=== PATIENT | female | born 1955 | race Caucasian/White ===

== ENCOUNTER 2020-03-22 10:40 | Emergency (ER) | payer OTHER, SELFPAY ==
--- NOTE | ~2020-03-22 | XR_ITS ---
EXAMINATION: XR elbow LT min 3V DATE: 03/22/2020 11:43 INDICATION: Left elbow pain, initial encounter TECHNIQUE: Anteroposterior, two oblique and lateral views of the left elbow were obtained. COMPARISON: None. FINDINGS: There is an acute, traumatic, closed, nondisplaced transverse neck fracture of the proximal radius. No definite joint effusion is identified. Soft tissues are unremarkable. IMPRESSION: 1. Nondisplaced neck fracture of the proximal radius. Reviewed, dictated and finalized at location A.
--- NOTE | ~2020-03-22 | XR_ITS ---
EXAMINATION: XR wrist LT min 3V DATE: 03/22/2020 11:12 INDICATION: Left wrist pain TECHNIQUE: Posteroanterior, ulnar deviation, oblique, and lateral views of the left wrist were obtain ed. COMPARISON: None available FINDINGS: There is no fracture, dislocation, or subluxation. The bones, soft tissues, and joint space s are normal. IMPRESSION: 1. No acute osseous abnormality. Reviewed, dictated and finalized at location A.
--- NOTE | ~2020-03-22 | XR_ITS ---
EXAMINATION: XR forearm LT 2V INDICATION: Left forearm pain TECHNIQUE: Two views of the left forearm are obtained. COMPARISON: None available FINDINGS: There appears to be a subtle nondisplaced transverse fracture of the radial neck. Bone alig nment is normal. No additional acute osseous abnormality is suspected. The soft tissues are unremarka ble. IMPRESSION: 1. Possible nondisplaced fracture of the radial neck. Consider dedicated elbow radiographs. Reviewed, dictated and finalized at location A.
[2020-03-22 10:57] VITALS: BP 130/92; PULSE 103; RESP 16; TEMP 36.6; O2SAT 98
--- NOTE | 2020-03-22 10:58 | ED.UPPEXIN ---
HPI - Extremity Injury (Upper) General Chief Complaint: Extremity Injury, Upper Stated Complaint: left elbow sprain Time Seen by Provider: 03/22/20 10:58 Source: patient Mode of arrival: ambulatory Limitations: no limitations History of Present Illness HPI narrative: Deisy Lilly is a 64 yo female with a PMH of HTN who comes to express care after fall while cleaning. Had sandals on and caught toe under rugs, fell to R with outstretched R hand and then hit R elbow. States at time of fall brought tears to her eyes and became diaphoretic; pain from elbow to midshaft forearm Related Data Home Medications Medication Instructions Recorded Confirmed hydrochlorothiazide 03/22/20 metoprolol succinate PO 03/22/20 omeprazole 03/22/20 quinapril mg 03/22/20 Allergies Allergy/AdvReac Type Severity Reaction Status Date / Time ibuprofen Allergy Unknown Verified 03/14/12 07:12 ADVIL Allergy Unknown Hives / Uncoded 02/21/19 13:50 Red Face NKFA Allergy Unknown Uncoded 04/01/03 13:09 NONSTEROIDAL Allergy Unknown Uncoded 02/21/19 13:50 Review of Systems Review of Systems: Narrative: CONSTITUTIONAL: Denies fever, chills, sweats. EYES: Denies visual changes, redness, discharge. ENT: Denies rhinorrhea, congestion, sore throat, otalgia. CARDIOVASCULAR: Denies chest pain, palpitations, edema. RESPIRATORY: Denies dyspnea, wheezing, cough GASTROINTESTINAL: Denies abdominal pain, nausea, vomiting, diarrhea. GENITOURINARY: Denies dysuria, hematuria, abnormal discharge SKIN: Denies rash or itching. NEUROLOGIC: Denies numbness, or focal weakness. PSYCHIATRIC: Denies anxiety or depression. Fall with pain left forearm PMFSH Family History Family History Other Hypertension Social History Social History (Updated 03/22/20 @ 11:11 by Katelynn Ching CNP) Smoking status: Never smoker Alcohol intake: current Alcohol use details: Drinks rarely Comments At time of signature, I agree with nursing past medical, surgical, social and family history. There is no relevant family history pertinent to the presenting complaint. Blood pressure elevated due to pain Exam Narrative: Exam Narrative: GENERAL: This is a well-nourished, well-developed patient, in mild distress. HEAD: normocephalic, atraumatic. EYES:Sclera clear/white. Vision is grossly intact. EARS: External ears normal, . Hearing grossly intact. NOSE: External nose normal without nasal discharge, nares without redness, no rhinorrhea. THROAT: Mucous membranes moist, NECK: Neck supple, CARDIOVASCULAR: Regular rate and rhythm without murmurs, gallops, or rubs. RESPIRATORY: Clear to auscultation. Breath sounds equal bilaterally. No wheezes, rales, or rhonchi. GASTROINTESTINAL: Abdomen soft, SKIN: warm, intact with no suspicious lesions or rash, good texture and turgor. NEURO: awake, alert, and oriented to person, place and time. There were no obvious focal neurologic abnormalities. Steady gait EXTREMITIES: N on left hand able to do finger opposition flex and extend wrist with discomfort able to pronate supinate forearm also with discomfort describes pain as extending from distal olecranon to midshaft forearm; not tender along that area to touch, chills weakness when trying to lift arm up with pressure, handgrip 4 out of 5 BACK: Nontender without deformity Course Course Emergency Course: X-ray left wrist left elbow Sling; baclofen, tramadol Ortho referral if pain does not improve; follow up with pcp Consultations Consultation #1: Orthopedics: Dr Callejas Vital Signs Vital signs: Vital Signs Temperature 97.9 F 03/22/20 10:57 Pulse Rate 103 H 03/22/20 10:57 Respiratory Rate 16 03/22/20 10:57 Blood Pressure 130/92 H 03/22/20 10:57 Pulse Oximetry 98 03/22/20 10:57 Temperature 97.9 F 03/22/20 10:57 Pulse Rate 103 H 03/22/20 10:57 Respiratory Rate 16 03/22/20 10:57 Blood Pressure 13
== END 2020-03-22 12:32 | disposition home or self-care (01) ==
PROVIDERS: Emergency Provider Nurse Practitioner; PCP Internal Medicine
DX: S52.135A Nondisplaced fracture of neck of left radius, initial encounter for closed fracture (principal); I10 Essential (primary) hypertension; W18.09XA Striking against other object with subsequent fall, initial encounter
CPT/HCPCS: 29105; 73080; 73090; 73110; 99214; A4565; G0463